=== PATIENT | male | born 1955 | race American Indian/Alaskan Native ===

== ENCOUNTER → 2017-12-05 11:15 | Outpatient (CLI) | payer MEDICARE, SELFPAY | PROVIDERS: PCP Family Medicine; Visit Provider Family Medicine | DX: E11.9 Type 2 diabetes mellitus without complications (principal) ==

== ENCOUNTER → 2017-12-06 07:26 | Outpatient (CLI) | payer MEDICARE, SELFPAY ==
[2017-12-06 08:16] LABS: BUN Creatinine Ratio 14.3 (6-22); Blood Urea Nitrogen 10 mg/dL (9-20); Calcium 9.2 mg/dL (8.4-10.2); Carbon Dioxide 31 mmol/L (22-32); Chloride 97 mmol/L (98-107); Estimated Glomerular Filt Rate > 60.0 mL/min (>60); Glucose 232 mg/dL (80-110); HEMOLYSIS < 15 (0-50); Potassium 4.5 mmol/L (3.4-5.1); Sodium 136 mmol/L (137-145)
== END ==
PROVIDERS: PCP Family Medicine; Visit Provider Family Medicine
DX: E11.9 Type 2 diabetes mellitus without complications (principal)
CPT/HCPCS: 36415; 80048; 84681

== ENCOUNTER → 2018-05-14 12:00 | Outpatient (CLI) | payer MEDICARE, SELFPAY ==
--- NOTE | 2018-05-14 12:03 | DI.US.S_ITS ---
PROCEDURE: US CAROTID DOPPLER BI INDICATIONS: RIGHT CAROTID BRUIT TECHNIQUE: Color and pulse Doppler interrogation was performed of both carotid systems, with image documentation and velocity measurements. COMPARISON: None. FINDINGS: Stenosis calculations are based on SRU (Society of Radiologists in Ultrasound) criteria. Right side: Brachial blood pressure: 139/90 mm Hg. Common carotid artery peak systolic velocity: 93 cm/sec. Internal carotid artery peak systolic velocity: 123 cm/sec. Internal carotid artery end diastolic velocity: 35 cm/sec. External carotid artery peak systolic velocity: 107 cm/sec. ICA/CCA peak systolic ratio: 1.3. Mcfadden scale imaging description: Scattered echogenic plaque in the bifurcation Percent internal carotid artery stenosis: Less than 50%. Vertebral artery: Flow direction is antegrade. Left side: Brachial blood pressure: 132/85 mm Hg. Common carotid artery peak systolic velocity: 96 cm/sec. Internal carotid artery peak systolic velocity: 109 cm/sec. Internal carotid artery end diastolic velocity: 43 cm/sec. External carotid artery peak systolic velocity: 116 cm/sec. ICA/CCA peak systolic ratio: 1.1. Mcfadden scale imaging description: Mild calcified plaque in the bifurcation Percent internal carotid artery stenosis: Less than 50%. Vertebral artery: Flow direction is antegrade. IMPRESSION: Bilateral less than 50% ICA stenoses Dictated by: Ryan Ahuja M.D. on 05/14/2018 at 15:20 Approved by: Ryan Ahuja M.D. on 05/14/2018 at 15:22
== END ==
PROVIDERS: PCP Family Medicine; Visit Provider Family Medicine
DX: I65.23 Occlusion and stenosis of bilateral carotid arteries (principal); R09.89 Other specified symptoms and signs involving the circulatory and respiratory systems
CPT/HCPCS: 93880

== ENCOUNTER → 2019-09-09 11:01 | Outpatient (CLI) | payer MEDICARE, SELFPAY ==
--- NOTE | 2019-09-09 | DI.RAD.S_ITS ---
PROCEDURE: XR THORACIC SPINE 3V INDICATIONS: LOW BACK PAIN TECHNIQUE: 3 views of the thoracic spine were acquired. COMPARISON: [facility], THORACIC SPINE 3 VIEWS, 01/16/2017, 10:52. [facility], THORACO-LUMBAR SPINE 2 VIEWS, 06/28/2014, 7:38. FINDINGS: Bones: No fractures or dislocations. Note is made of mild disc height reduction and endplate osteophyte formation as was previously the case along the thoracic spine, in December of 2016. The degenerative changes appear to slightly worsened. There has been vertebral height reduction at T7-T10, little if any changed from 2017. Note is made of a spinal electrode plate tip centered dorsal to the T6-T7 disc level. This was previously present. No suspicious bony lesions. 12 pairs of ribs are noted, and appear intact where visualized in the 12th rib set is rudimentary and difficult to clearly visualize the T11 rib is easily seen. Soft tissues: No paravertebral stripe thickening. 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 No new compression fractures seen. Vertebral height reduction is again noted from T7-T10, perhaps reflecting old osteoporotic mild compression fractures but no new or wedge-shaped compression fracture is seen. Overall a definite source of new pain is not identified. Dictated by: Jose Pak M.D. on 09/09/2019 at 11:06 Approved by: Jose Pak M.D. on 09/09/2019 at 11:16
--- NOTE | 2019-09-09 | DI.RAD.S_ITS ---
PROCEDURE: XR LUMBAR SPINE 2-3V INDICATIONS: LOW BACK PAIN TECHNIQUE: 3 views of the lumbar spine were acquired. COMPARISON: [facility], , L-SPINE 2-3 VIEWS, 01/16/2017, 10:52. FINDINGS: Bones: Posterior spinal fixation with paraspinal rods pedicle screws seen from L3-S1. Hardware appears intact. Interbody cage graft also noted at these levels. Grade 1 retrolisthesis of L2 on L3. Multilevel degenerative endplate sclerosis and spurring. Diffuse facet arthropathy. Moderate narrowing of the L1-L2 and L2-L3 disc space. Soft tissues: Overlying bowel gas pattern is normal. No suspicious soft tissue calcifications. IMPRESSION: Chronic postsurgical and degenerative changes as above. No interval progression since 12/27/16 Dictated by: Ryan Ahuja M.D. on 09/09/2019 at 16:35 Approved by: Ryan Ahuja M.D. on 09/09/2019 at 16:36
== END ==
PROVIDERS: Referring Provider Anesthesiology Pain Medicine; Visit Provider Anesthesiology Pain Medicine
DX: M54.5 Low back pain (principal); M47.814 Spondylosis without myelopathy or radiculopathy, thoracic region; M47.816 Spondylosis without myelopathy or radiculopathy, lumbar region; M51.34 Other intervertebral disc degeneration, thoracic region; Z98.1 Arthrodesis status
CPT/HCPCS: 72072; 72100

== ENCOUNTER → 2019-10-18 10:59 | Outpatient (CLI) | payer MEDICARE, SELFPAY ==
[2019-10-20 17:00] LABS: COVID19 Sendout Not Detected (Not Detect)
== END ==
PROVIDERS: Visit Provider Physician Assistant
DX: Z01.818 Encounter for other preprocedural examination (principal)
CPT/HCPCS: 87635

== ENCOUNTER 2019-10-21 08:10 | Day surgery (SDC) | payer MEDICARE, OTHER, SELFPAY ==
[2019-10-21 08:38] VITALS: BP 139/86; PULSE 105; RESP 18; TEMP 36.4; O2SAT 99; BMI 21.5
--- NOTE | 2019-10-21 09:38 | SUR.PREOP ---
Dr Diego here to talk with patient and cancelled case due to patients blood sugar this morning of 355. Pt ordered to go see PCP by Dr Diego and verbalizes understanding. Pt iv dcd, site clear, pt getting dressed now and pts on her way to [facility]
--- NOTE | 2019-10-21 09:42 | P.EN_ITS ---
Event Note Date Patient Seen: 10/21/19 Time Patient Seen: 09:45 Event Note: This is a 63-year-old man who came in for EGD and balloon dilation for dysphagia. On admission his blood sugar was 353. He says that he normally takes apple cider vinegar to keep his blood sugar under control, but he does not normally check it at home, and he does not know when he last had a hemoglobin A1c checked. He does take metformin 1000 mg daily. Had a long discussion with the patient regarding his blood sugar, and his diabetes. I am concerned about his dysphagia, but is uncontrolled blood sugar seems like a greater threat at this point. I offered that he needs to see his primary doctor today, versus going to the ER. The patient declines to go to the ER, and says he will call his primary doctor today and see if he can be seen today. I told him to let them know specifically that his blood sugar was 353, and that his endoscopy procedure was postponed because of this. I contacted my office, and asked extension clerk to please call his primary care doctor, left the note this information, and let them know that he needs to be seen and medically cleared prior to his endoscopy being rescheduled. We would like to reschedule it as soon as possible, given he is quite symptomatic from his dysphagia.
== END 2019-10-21 12:00 | disposition home or self-care (01) ==
LOC: ENDO 08:15
PROVIDERS: PCP Physician Assistant; Referring Provider Surgery; Visit Provider Surgery
PROC: 0DJ08ZZ Inspection of Upper Intestinal Tract, Via Natural or Artificial Opening Endoscopic (ICD-10-PCS; CPT 43235; principal; 2019-10-21 09:15)
DX: Z53.9 Procedure and treatment not carried out, unspecified reason (principal)

== ENCOUNTER 2020-03-18 08:49 | Emergency (ER) | payer MEDICARE, OTHER, SELFPAY ==
[2020-03-18 09:00] VITALS: BP 188/101; PULSE 91; RESP 18; TEMP 36.6; O2SAT 98
--- NOTE | 2020-03-18 09:04 | PC.NURSE ---
pt states he has had his stimulator for about 5 yrs.
--- NOTE | 2020-03-18 09:06 | ED.BACK ---
HPI - Back Pain/Injury General Chief Complaint: Back Pain/Injury Stated Complaint: stimulator in back got moved around Time Seen by Provider: 03/18/20 08:52 Source: patient and family Mode of arrival: Ambulatory Limitations: no limitations History of Present Illness HPI Narrative: This is a 64-year-old male who comes to the emergency department with complaint of increased pain in his back and radiating around to side. Patient has had this pain chronically for several months. He has a back stimulator that has moved location and now pressing on his spine. He follows with Dr. Jacob and Dr. Browning at the [place] [facility] in [facility] [place]. Dr. Jacob originally placed the stimulator and is aware that has moved, there are plans for it to be removed and replaced with a smaller stimulator that is tethered are attached so it does not have any movement. Patient has been taking Ultram 50 mg 4 times daily and states it has been helpful for his pain but he has gone through his supply which was prescribed on February 22. He states he is quite uncomfortable since he has ran out and comes in requesting short-term refill until he can follow-up with pain management. Patient denies any fevers or chills. No cold, cough or congestion. No chest pain or shortness of breath. No new changes in his pain, there is not any change in the location, characteristics or new additional factors. Patient denies any loss of bowel or bladder control. He denies any weakness numbness or tingling. He denies any new GI or urinary symptoms. He has had issues with constipation secondary to the narcotic pain medication and takes laxatives daily. He states he takes medication for hypertension and diabetes. He denies any chronic kidney disease. Related Data Home Medications Medication Instructions Recorded Confirmed fluticasone propionate 50 1 spray NASAL DAILY 10/15/19 10/15/19 mcg/actuation nasal spray,suspension metformin 1,000 mg tablet 1,000 mg PO DAILY 10/15/19 10/15/19 tramadol 50 mg tablet 50 mg PO Q8H PRN 10/15/19 10/15/19 Previous Rx's Medication Instructions Recorded tramadol 100 mg PO Q6H PRN #20 tab 03/18/20 Allergies Allergy/AdvReac Type Severity Reaction Status Date / Time aspirin Allergy Intermediate Gastrointestinal Verified 10/21/19 08:36 Upset bee venom protein (honey bee) Allergy Unknown Verified 10/20/19 12:17 Review of Systems Review of Systems ROS Unobtainable: All systems reviewed & are unremarkable except as noted in HPI and below Patient History Medical History Diabetes Hx of acute pancreatitis Surgical History History of back surgery Family History Father Lung cancer Social History household members: spouse Smoking Status: Former smoker alcohol intake: never Smoking Status: Former smoker Substance Use Type: marijuana Exam Narrative Exam Narrative: GENERAL: Alert and oriented x three, thin, well-appearing well-nourished male in [id number] distress. HEENT: Head normocephalic, atraumatic, EOMI, pupils reactive, face symmetric, moist mucous membranes NECK: Supple, full range of motion CARDIOVASCULAR: Regular rate and rhythm without murmurs, rubs or gallops. RESPIRATORY: Breath sounds equal bilaterally, no wheezes rales or rhonchi. ABDOMEN: Soft, nontender. Normoactive bowel sounds all 4 quadrants. No guarding or rebound, rigidity, no mass : No CVA tenderness BACK: No cervical, thoracic or lumbar vertebral point tenderness. Patient has device present the posterior back to the right of the spinal cord. Patient has normal range of motion. Patient's gait is normal. Rectal exam is deferred. Muscle strength is 5/5 in lower extremities. EXTREMITIES: Normal range of motion, no clubbing or edema. Neurovascularly intact NEUROLOGICAL: Cranial nerves II through XII grossly intact. Moving all extremities SKIN: Warm, dry, no petechiae, no rashes or lesions. Initial Vital Signs Initial Vital Signs: Vital Signs Temperature 98 F 03/18/20 09:00 Pulse Rate 91 H 03/18/20 09:00 Respiratory Rate 18 03/18/20 09:00 Blood Pressure 188/101 H 03/18/20 09:00 Pulse Oximetry 98 03/18/20 09:00 Course Orders Ordered: Discontinued Medications Ketorolac Tromethamine (Ketorolac 60 Mg/2 Ml Vial) 30 mg IM NOW ONE Stop: 03/18/20 09:07 Last Admin: 03/18/20 09:19 Dose: 30 mg Documented by: Vital Signs Vital signs: Vital Signs - 8 hr 03/18/20 09:00 03/18/20 09:48 Temperature 98 F Pulse Rate 91 H 85 Respiratory Rate 18 16 Blood Pressure 188/101 H 162/99 H Pulse Oximetry 98 96 MDM - Back Pain/Injury MDM Narrative Medical decision making narrative: This is a 64 year old male that presents with request for refill and increase in dose of his pain medication. Patient states he has a stimulator which has malfunctioned and moved in location. This is known issue that he is following with his pain management physician, he states pain medication was helping but he was taking it more frequently than he was prescribed. Patient denies any red flag symptoms. [place] [employer] shows patient has been getting prescriptions from providers at pain management clinic with regular month visits, no additional outside prescriptions noted in the last 6 months. Discharge Plan Departure Patient Disposition: Home Clinical Impression: Chronic back pain Activity Restrictions/Additional Instructions: Follow up with your pain management team this following week. Call Sunday for an appointment if you do not already have one. Let your team know that you have filled a narcotic prescription as you likely have a pain contract. [facility] in [place]. Take medication as prescribed, this medication can make you sleepy do not drive, perform hazardous activities or make any major decisions while taking it. Return to the ER for fevers, rapidly worsening symptoms, new weakness, numbness, difficulty with movement, loss of bowel or bladder control, inability sure extremities, persistent vomiting, new chest pain shortness of breath, passing out or other new or concerning symptoms. Prescriptions: New tramadol 100 mg tablet 100 mg PO Q6H PRN (Reason: pain) Qty: 20 RF: 0 No Action metformin 1,000 mg tablet 1,000 mg PO DAILY RF: 0 fluticasone propionate [Flonase Allergy Relief] 50 mcg/actuation spray,suspension 1 spray NASAL DAILY RF: 0 tramadol 50 mg tablet 50 mg PO Q8H PRN (Reason: Back Pain) RF: 0 Referrals: Nawaf Rasmussen MD [Primary Care Provider] - Niko Jacob MD [Non-Staff] -
[2020-03-18] MEDS: KETOROLAC 60 MG/2 ML VIAL 30 MG IM (09:19)
[2020-03-18 09:48] VITALS: BP 162/99; PULSE 85; RESP 16; O2SAT 96
== END 2020-03-18 09:40 | disposition home or self-care (01) ==
PROVIDERS: Emergency Provider Emergency Medicine; PCP Family Medicine
DX: M54.9 Dorsalgia, unspecified (principal); I10 Essential (primary) hypertension; E11.9 Type 2 diabetes mellitus without complications; Z87.19 Personal history of other diseases of the digestive system
CPT/HCPCS: 96372; 99281; 99283; J1885